=== PATIENT | female | born 1985 | race Caucasian/White ===

== ENCOUNTER 2025-05-05 15:35 | Emergency (ER) | payer OTHER ==
[~2025-05-05] VITALS: Ht 165.1 cm; Wt 59.0 kg
[2025-05-05 15:38] VITALS: O2SAT 99
[2025-05-05] MEDS ORDERED: LIDOCAINE 2%-EPI 1:100,000 20 ML VIAL ONE (16:02)
[2025-05-05] MEDS: LIDOCAINE 2%-EPI 1:100,000 20 ML VIAL IJ ONE (16:07)
[2025-05-05 16:23] LABS: BASOPHILS # (AUTO) 0.1 K/UL (0.0-0.2); BASOPHILS % (AUTO) 0.7 % (0.0-2.0); EOSINOPHILS # (AUTO) 0.2 K/uL (0.0-0.7); EOSINOPHILS % (AUTO) 2.1 % (0.0-7.0); HEMATOCRIT 37.6 % (31.2-41.9); HEMOGLOBIN 12.5 g/dL (10.9-14.3); LYMPHOCYTES % (AUTO) 22.9 % (20.5-51.5); MEAN CORPUSCULAR HEMOGLOBIN 29.2 uug (24.7-32.8); MEAN CORPUSCULAR HGB CONC 33 g/dL (32.3-35.6); MEAN CORPUSCULAR VOLUME 87.6 fL (75.5-95.3); MONOCYTES # (AUTO) 0.7 K/uL (0.1-1.30); MONOCYTES % (AUTO) 8.1 % (0.0-11.0); NEUTROPHILS # (AUTO) 5.7 K/uL (1.8-8.9); NEUTROPHILS % (AUTO) 66.2 % (38.5-71.5); PLATELET COUNT (AUTO) 453 K/uL (179-408); RED BLOOD CELL COUNT(AUTO) 4.29 MIL/uL (3.63-4.92); RED CELL DISTRIBUTION WIDTH 15.6 % (12.3-17.7); WHITE BLOOD COUNT (AUTO) 8.6 K/uL (3.8-11.8)
[2025-05-05 16:24] LABS: DIFFERENTIAL COMMENT 1
[2025-05-05 16:29] LABS: CALCIUM 8.6 mg/dL (8.5-10.1); CREATININE 0.8 mg/dL (0.6-1.3); POTASSIUM 3.8 mmol/L (3.5-5.1)
[2025-05-05 16:35] LABS: ALBUMIN 3.3 g/dL (3.4-5.0); BILIRUBIN,DIRECT 0.1 mg/dL (0.0-0.2); BILIRUBIN,TOTAL 0.2 mg/dL (0.2-1.0); TOTAL PROTEIN, SERUM 7.5 g/dL (6.4-8.2)
[2025-05-05] MEDS ORDERED: SULF1TAB48 PO (17:10)
[2025-05-05] MEDS ORDERED: CEPH500C2 PO (17:10)
== END 2025-05-05 17:24 | disposition left against medical advice (07) ==
LOC: ER 15:35
DX: L08.9 Local infection of the skin and subcutaneous tissue, unspecified (principal); R51.9 Headache, unspecified; E46 Unspecified protein-calorie malnutrition; Z86.19 Personal history of other infectious and parasitic diseases; Z68.21 Body mass index [BMI] 21.0-21.9, adult
CPT/HCPCS: 36415; 85025; 85651; A4606; A4663